=== PATIENT | male | born 1960 | race Caucasian/White ===

== ENCOUNTER 2022-05-30 13:22 | Outpatient (CLI) | payer BC ==
[2022-05-30 14:52] LABS: #Basophils 0.2 10x3/uL (0.0-0.2); #Eosinphils 0.2 10x3/uL (0.0-0.5); #Monocytes 1.6 10x3/uL (0.0-1.1); #Neutrophils 7.6 10x3/uL (1.5-8.4); %Basophils 1.3 % (0.0-2.0); %Eosinophils 1.8 % (0.0-6.0); %Lymphocytes 23.1 % (18.0-47.0); %Monocytes 12.8 % (0.0-10.0); %Neutrophils 60.6 % (40.0-75.0); Hemoglobin 13.5 g/dL (13.5-17.5); Mean Corpuscular HGB CONC 33.5 g/dL (32.0-36.0); Mean Corpuscular Hemoglobin 30.3 pg (27.0-33.0); Mean Corpuscular Volume 90.4 fl (81.2-95.1); Mean Platelet Volume 10.4 fl (7.4-10.4); Platelet Count 476 10x3/uL (150-450); RBC Distribution Width 13.6 % (11.5-14.5); Red Blood Cell (RBC) Count 4.46 10x6/uL (4.32-5.72); White Blood Cell (WBC) Count 12.5 10x3/uL (3.5-10.5)
[2022-05-30 15:17] LABS: Anion Gap 17 mmol/L (10-20); BUN (Urea Nitrogen) 16 mg/dL (8.4-25.7); Calc. Creatinine Clearance 0 mL/min (70-130); Calcium 10.5 mg/dL (7.8-10.44); Carbon Dioxide 23 mmol/L (23-31); Chloride 101 mmol/L (98-107); Estimated GFR 96; Glucose 90 mg/dL (80-115); Potassium 4.2 mmol/L (3.5-5.1); Sodium 137 mmol/L (136-145)
[2022-05-30 15:27] LABS: Prothrombin Time 10.5 sec (9.5-12.1)
== END 2022-05-30 13:23 | disposition home or self-care (01) ==
LOC: LABBT 13:22
PROVIDERS: ATTEND Orthopaedic Surgery
DX: Z01.818 Encounter for other preprocedural examination (principal); M87.051 Idiopathic aseptic necrosis of right femur
CPT/HCPCS: 80048; 85025; 85610; 87081; 93005; 93010

== ENCOUNTER 2022-06-04 05:28 | Observation (INO) | payer BC ==
[2022-06-04] MEDS ORDERED: Bupivacaine PF 0.5% 30 ML VIAL ONE ×2 (06:14→07:13)
[2022-06-04] MEDS ORDERED: Vancomycin (BATCH) 1.5 GRAM/300 ML BAG ONE (06:17)
[2022-06-04] MEDS ORDERED: Tranexamic Acid 1,000 MG/10 ML VIAL ONE (06:17)
[2022-06-04] MEDS ORDERED: Sodium Chloride 0.9% 100 ML ONE ×2 (06:17→06:53)
[2022-06-04] MEDS ORDERED: Midazolam HCl 2 mg/2 ml Vial ONE (06:41)
[2022-06-04] MEDS ORDERED: Fentanyl 250 MCG/5 ML VIAL ONE (06:41)
[2022-06-04] MEDS ORDERED: Fentanyl 100 MCG/2 ML VIAL SLOW IVP PRN (06:50)
[2022-06-04] MEDS ORDERED: Zolpidem Tartrate 5 MG TAB PO PRN (06:50)
[2022-06-04] MEDS ORDERED: diphenhydrAMINE 25 MG CAP PO PRN (06:50)
[2022-06-04] MEDS ORDERED: Ondansetron PF 4 MG/2 ML Vial IVP PRN (06:50)
[2022-06-04] MEDS ORDERED: HYDROcodone/Acetaminophen 10/325 mg Tablet PO PRN (06:50)
[2022-06-04] MEDS ORDERED: Acetaminophen 325 MG TAB PO PRN (06:50)
[2022-06-04] MEDS ORDERED: Promethazine HCl 25 MG/ML VIAL IM PRN (06:50)
[2022-06-04] MEDS ORDERED: CEFAZOLIN 2 GM VIAL ONE (06:53)
[2022-06-04] MEDS ORDERED: fentaNYL 50 mcg/mL 1 mL Vial SLOW IVP PRN (07:00)
[2022-06-04] MEDS ORDERED: Propofol 1,000 MG/100 ML VIAL IV ONE (07:08)
[2022-06-04] MEDS ORDERED: ePHEDrine Sulfate 50 MG/10 ML VIAL ONE (07:11)
[2022-06-04] MEDS ORDERED: Bupivacaine HCl 0.5%/Epinephrine 1:200,000/PF 30 ml Vial ONE (07:11)
[2022-06-04] MEDS ORDERED: Lidocaine 1% (PF) 30 ML VIAL ONE (07:13)
[2022-06-04] MEDS ORDERED: Aspirin 81 mg Enteric Coated Tablet PO SCH (09:00)
[2022-06-04] MEDS ORDERED: Non-Formulary Item 1 EACH (Multivitamin With Minerals [Multiple Vitamin] 1 TABLET Tablet) PO SCH (09:00)
[2022-06-04] MEDS ORDERED: Non-Formulary Item 1 EACH (Magnesium [Magnesium] 250 MG Tablet) PO SCH (09:00)
[2022-06-04] MEDS: Ketorolac Tromethamine 30 MG/ML VIAL IVP SCH ×2 (14:20→21:04)
[2022-06-04] MEDS: CEFAZOLIN 2 GM in Sodium Chloride 0.9% 100 ML IVPB SCH ×2 (14:22→21:05)
[2022-06-04 15:10] VITALS: BMI 27.3
[2022-06-04] MEDS: Aspirin 81 mg Enteric Coated Tablet PO SCH ×2 (17:33→21:05)
[2022-06-04] MEDS: Sodium Chloride 0.9% 1,000 ML IV SCH ×2 (17:33→21:05)
[2022-06-04] MEDS: Amlodipine 10 MG TAB PO SCH (17:33)
[2022-06-04] MEDS: Ferrous Gluconate 324 MG TAB PO SCH ×2 (17:34→21:04)
[2022-06-04] MEDS: Multivitamin W/ Minerals 1 TAB PO SCH (17:34)
[2022-06-04] MEDS: Metoprolol Tartrate 50 MG TAB PO SCH ×2 (17:34→21:04)
[2022-06-04] MEDS: Rosuvastatin 20 MG TAB PO SCH (17:34)
[2022-06-04] MEDS: Magnesium Oxide 250 MG TAB PO SCH (17:34)
[2022-06-04] MEDS: CO Q-10 CAPSULE 100 MG PO SCH (17:35)
[2022-06-04] MEDS: Senokot S 8.6-50 MG TAB PO SCH ×2 (17:35→21:04)
[2022-06-04] MEDS: HYDROcodone/Acetaminophen 10/325 mg Tablet PO PRN (21:06)
[2022-06-05] MEDS: HYDROcodone/Acetaminophen 10/325 mg Tablet PO PRN ×3 (03:43→12:19)
[2022-06-05] MEDS: Sodium Chloride 0.9% 1,000 ML IV SCH ×2 (03:47→10:33)
[2022-06-05] MEDS: Ketorolac Tromethamine 30 MG/ML VIAL IVP SCH (05:17)
[2022-06-05 06:57] LABS: Hemoglobin 10.5 g/dL (14.0-18.0); Mean Corpuscular HGB CONC 34.2 g/dL (32.0-36.0); Mean Corpuscular Volume 93.6 fl (78.0-98.0); Mean Platelet Volume 7.7 fL (7.4-10.4); Platelet Count 335 10x3/uL (130-400); RBC Distribution Width 11.8 % (11.5-14.5); Red Blood Cell (RBC) Count 3.29 mill/uL (4.70-6.10); White Blood Cell (WBC) Count 12.3 10x3/uL (4.8-10.8)
[2022-06-05] MEDS: Amlodipine 10 MG TAB PO SCH (08:35)
[2022-06-05] MEDS: Multivitamin W/ Minerals 1 TAB PO SCH (08:35)
[2022-06-05] MEDS: Senokot S 8.6-50 MG TAB PO SCH (08:35)
[2022-06-05] MEDS: Magnesium Oxide 250 MG TAB PO SCH (08:36)
[2022-06-05] MEDS: Ferrous Gluconate 324 MG TAB PO SCH (08:36)
[2022-06-05] MEDS: Aspirin 81 mg Enteric Coated Tablet PO SCH (08:36)
[2022-06-05] MEDS: Metoprolol Tartrate 50 MG TAB PO SCH (08:36)
[2022-06-05] MEDS: CO Q-10 CAPSULE 100 MG PO SCH (08:36)
[2022-06-05] MEDS: Rosuvastatin 20 MG TAB PO SCH (08:46)
[2022-06-05 12:14] VITALS: BP 122/62; TEMP 99.8
== END 2022-06-05 13:35 | disposition home health service (06) ==
LOC: SDC 05:28 → SJJU 09:34 → INTOOBSV 09:34
PROVIDERS: ADMIT Orthopaedic Surgery; ATTEND Orthopaedic Surgery
PROC: 0SR904A Replacement of Right Hip Joint with Ceramic on Polyethylene Synthetic Substitute, Uncemented, Open Approach (ICD-10-PCS; principal; 2022-06-04)
DX: M16.11 Unilateral primary osteoarthritis, right hip (principal); M87.051 Idiopathic aseptic necrosis of right femur; I10 Essential (primary) hypertension; E78.5 Hyperlipidemia, unspecified; I73.00 Raynaud's syndrome without gangrene; F17.290 Nicotine dependence, other tobacco product, uncomplicated; Z79.82 Long term (current) use of aspirin; Z79.899 Other long term (current) drug therapy; Z88.8 Allergy status to other drugs, medicaments and biological substances; Z96.642 Presence of left artificial hip joint
CPT/HCPCS: 36415; 85027; C1776; J1885; J2001; J2250; J2704; J3010; J3370; J3490; J7050; S0020

== ENCOUNTER 2022-06-12 14:04 | Outpatient (CLI) | payer BC | END 2022-06-12 14:05 | disposition home or self-care (01) | LOC: ULT 14:04 | PROVIDERS: ATTEND Orthopaedic Surgery | DX: M79.661 Pain in right lower leg (principal) ==